=== PATIENT | male | born 1995 | race Caucasian/White ===

== ENCOUNTER 2023-05-21 14:06 | Emergency (ER) | payer MEDICAID, SELFPAY ==
[2023-05-21 14:09] VITALS: BP 130/79; PULSE 78; RESP 18; TEMP 36.4; O2SAT 98; BMI 28.4
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
[2023-05-21] MEDS: Diphth,Pertuss(Acell),Tet Vac 0.5 ML Vial IM (14:40)
== END 2023-05-21 15:01 | disposition home or self-care (01) ==
PROVIDERS: Emergency Provider Emergency Medicine; PCP Internal Medicine Infectious Disease; Visit Provider Emergency Medicine
DX: S61.451A Open bite of right hand, initial encounter (principal); F79 Unspecified intellectual disabilities; Z79.899 Other long term (current) drug therapy; Z23 Encounter for immunization; W55.81XA Bitten by other mammals, initial encounter
CPT/HCPCS: 90715; 99283